=== PATIENT | male | born 1940 | race Caucasian/White ===

== ENCOUNTER → 2022-09-24 | Outpatient (CLI) | payer MEDICARE, OTHER ==
[~2022-09-24] MED LIST: Aspirin EC81 MG PO; LANS15EC PO; SIMV40 PO
== END | disposition home or self-care (01) ==
LOC: PLD 14:43 → LAB SHORT 14:43
DX: D48.5 Neoplasm of uncertain behavior of skin (principal)
CPT/HCPCS: 88305

== ENCOUNTER 2022-10-23 07:37 | Day surgery (SDC) | payer MEDICARE, OTHER ==
[~2022-10-23] VITALS: Ht 170.2 cm; Wt 75.6 kg
[2022-10-23] MEDS ORDERED: ATOR80 (10:00)
[2022-10-23] MEDS ORDERED: LISI20 PO (10:01)
[2022-10-23] MEDS ORDERED: LANS15EC PO (10:02)
[2022-10-23] MEDS ORDERED: OMEP20ER (10:03)
--- NOTE | 2022-10-23 10:19 | NUR ---
10/23/22 Valentin9 MEE CARDENAS JUHI AT BEDSIDE.VSS. PT COMPLETED SENTINEL NODE IMAGING PRIOR TO ARRIVAL. PRE-OP TEACHING COMPLETED, PT WITH NO FURTHER QUESTIONS AT THIS TIME.
--- NOTE | 2022-10-23 13:24 | NUR ---
10/23/22 1324 YANNA MAHER AT BEDSIDE. PT EATING AND DRINKING W/O DIFFICULTY. PT ALERT. HENRIETTA GOING OVER D/C INSTRUCTION.
[2022-10-23 13:41] VITALS: BP 170/86
== END 2022-10-23 13:49 | disposition home or self-care (01) ==
LOC: ORSCSDS 07:37 → NM 08:00 → ORSCSDS 13:49
PROVIDERS: Surgery
PROC: 0JBG0ZX Excision of Right Lower Arm Subcutaneous Tissue and Fascia, Open Approach, Diagnostic (ICD-10-PCS; principal; 2022-10-23 10:00)
PROC: 07B50ZX Excision of Right Axillary Lymphatic, Open Approach, Diagnostic (ICD-10-PCS; principal; 2022-10-23 10:00)
DX: C44.99 Other specified malignant neoplasm of skin, unspecified (principal); D36.0 Benign neoplasm of lymph nodes; I10 Essential (primary) hypertension; I25.10 Atherosclerotic heart disease of native coronary artery without angina pectoris; E78.5 Hyperlipidemia, unspecified; K21.9 Gastro-esophageal reflux disease without esophagitis; Z79.899 Other long term (current) drug therapy; Z79.82 Long term (current) use of aspirin
CPT/HCPCS: 78195; 88305; 88307; 88342; A9270; A9520; J0690; J1100; J2405; J2704; J2795; J3010; J7120; Q9968